=== PATIENT | female | born 1995 | race Caucasian/White ===

== ENCOUNTER 2021-02-23 07:14 | Day surgery (SDC) | payer OTHER ==
[~2021-02-23] VITALS: Ht 154.9 cm; Wt 54.4 kg
[~2021-02-23 07:14] MED LIST: HYDACE5 PO; IBUP800 PO; LORA10ER PO; MELO7.5 PO; OXYACE5T PO; PERM5TC TOP; RANI150 PO; Verotin-Gr Cap1 EACH PO; Zofran Odt4 MG SL
--- NOTE | 2021-02-23 08:00 | NUR ---
02/23/21 0800 Tyshawn Caicedo CALL LIGHT WITHIN REACH.
--- NOTE | 2021-02-23 08:50 | NUR ---
02/23/21 0850 Jace Brito A SMALL SCRATCH/ABRASION NOTED ON LOWER LEFT ABD PRIOR TO COMING TO OPERATING ROOM. DR WONDERLY AWARE AND OKAY WITH PROCEDING.
--- NOTE | 2021-02-23 10:13 | NUR ---
02/23/21 1013 DOMINIK HOLDER PAIN 2-3
== END 2021-02-23 11:07 | disposition home or self-care (01) ==
LOC: ORSCSDS 07:14
PROVIDERS: Obstetrics & Gynecology
PROC: 0UB74ZZ Excision of Bilateral Fallopian Tubes, Percutaneous Endoscopic Approach (ICD-10-PCS; principal; 2021-02-23 08:30)
DX: Z30.2 Encounter for sterilization (principal); N80.3 Endometriosis of pelvic peritoneum; F17.210 Nicotine dependence, cigarettes, uncomplicated
CPT/HCPCS: 88302; A9270; J0171; J0690; J1100; J1885; J2405; J2704; J3010; J7120

== ENCOUNTER → 2022-10-31 | Outpatient (CLI) | payer OTHER | END | disposition home or self-care (01) | LOC: LAB SHORT 11:26 → LAB 11:26 | DX: R30.0 Dysuria (principal) | CPT/HCPCS: 87077; 87086; 87186 ==

== ENCOUNTER → 2022-11-23 | Outpatient (CLI) | payer OTHER ==
[2022-12-06 13:09] LABS: HPV APTIMA Negative (Negative)
== END ==
LOC: LAB SHORT 13:44 → LAB 13:44
PROVIDERS: Obstetrics & Gynecology
DX: Z01.419 Encounter for gynecological examination (general) (routine) without abnormal findings (principal)
CPT/HCPCS: G0145

== ENCOUNTER → 2022-11-26 | Outpatient (CLI) | payer OTHER ==
[2022-12-05 07:50] LABS: BENZOYLECGONINE 175 (.)
== END ==
LOC: LAB SHORT 16:16 → LAB 16:16
PROVIDERS: Family Medicine
DX: R82.5 Elevated urine levels of drugs, medicaments and biological substances (principal)
CPT/HCPCS: G0480

== ENCOUNTER → 2024-03-11 | Outpatient (CLI) | payer OTHER | END | disposition home or self-care (01) | LOC: LAB 13:26 → LAB SHORT 13:26 | DX: N93.9 Abnormal uterine and vaginal bleeding, unspecified (principal) | CPT/HCPCS: 88305 ==

== ENCOUNTER → 2024-05-10 | Outpatient (CLI) | payer OTHER ==
[2024-05-10 12:49] LABS: BASOPHILS PERCENT AUTO 2 % (0-2); EOSINOPHILS ABSOLUTE AUTO 0.18 K/mm3 (0.00-0.68); EOSINOPHILS PERCENT AUTO 3 % (0-6); Hematocrit 40.7 % (33.0-51.0); IMMATURE GRAN ABSOLUTE AUTO 0.01 K/mm3 (0.00-0.10); IMMATURE GRAN PERCENT AUTO 0 % (0-1); LYMPHOCYTES ABSOLUTE AUTO 2.53 K/mm3 (0.84-5.20); LYMPHOCYTES PERCENT AUTO 43 % (21-46); MONOCYTES ABSOLUTE AUTO 0.59 K/mm3 (0.16-1.47); MONOCYTES PERCENT AUTO 10 % (4-13); Mean Corpuscular HGB 30.6 pg (26.0-34.0); Mean Corpuscular HGB Conc 34.4 g/dL (31.5-36.5); Mean Corpuscular Volume 89 fL (80-100); Mean Platelet Volume 8.8 fL (9.1-12.4); NEUTROPHILS ABSOLUTE AUTO 2.46 K/mm3 (1.96-9.15); NEUTROPHILS PERCENT AUTO 42 % (41-73); Platelet Count 259 K/mm3 (150-400); RDW Coefficient Variation 12.4 % (11.7-14.2); RDW Standard Deviation 39.8 fL (35.1-46.3); Red Blood Cell Count 4.58 M/mm3 (3.80-5.20); White Blood Cell Count 5.87 K/mm3 (4.00-11.30)
[2024-05-10 13:00] LABS: Albumin/Globulin Ratio 1.2 (0.8-1.8); Bilirubin, Total 0.8 mg/dL (0.1-1.0); Bun/Creatinine Ratio 10.6 (12.0-20.0); Calcium, Blood 8.4 mg/dL (8.5-10.1); Creatinine, Blood 0.85 mg/dL (0.40-1.00); Globulin, Blood 3.3 g/dL (2.2-4.0); Potassium, Blood 4.1 mmol/L (3.5-5.5); Total Protein, Blood 7.3 g/dL (6.4-8.2)
== END | disposition home or self-care (01) ==
LOC: LAB 12:45 → LAB SHORT 12:45
PROVIDERS: Emergency Medicine
DX: N71.9 Inflammatory disease of uterus, unspecified (principal)
CPT/HCPCS: 80053; 83690; 85025

== ENCOUNTER 2024-09-25 02:13 | Emergency (ER) | payer OTHER ==
[~2024-09-25] VITALS: Ht 160 cm; Wt 56.7 kg
[2024-09-25 05:00] VITALS: BP 107/70
[2024-09-25] MEDS ORDERED: Lidocaine/Tetracaine/Epinephr 3 ML GEL SYRINGE TOP ONE (06:30)
[2024-09-25] MEDS ORDERED: Ondansetron 4 MG SoluTab SL ONE (07:25)
== END 2024-09-25 07:34 | disposition home or self-care (01) ==
LOC: ER 02:13
DX: S71.112A Laceration without foreign body, left thigh, initial encounter (principal); S71.111A Laceration without foreign body, right thigh, initial encounter; X78.1XXA Intentional self-harm by knife, initial encounter; F17.200 Nicotine dependence, unspecified, uncomplicated
CPT/HCPCS: 12002; 93005; 93010; 99283-25

== ENCOUNTER → 2025-05-14 | Outpatient (CLI) | payer OTHER ==
[2025-05-20 13:42] LABS: 3-OH-COTININE, URN, QUANT >2000 ng/mL; ANABASINE, URN, QUANT <5 ng/mL; COTININE, URN, QUANT 763 ng/mL; NICOTINE, URN, QUANT 454 ng/mL
== END ==
LOC: LAB 17:03 → LAB SHORT 17:03
PROVIDERS: Obstetrics & Gynecology
DX: F17.210 Nicotine dependence, cigarettes, uncomplicated (principal); Z87.410 Personal history of cervical dysplasia
CPT/HCPCS: 87624; G0145; G0480